=== PATIENT | male | born 1960 | race Caucasian/White ===

== ENCOUNTER 2017-11-05 12:41 | Inpatient (IN) ==
[2017-11-05] MEDS ORDERED: Lido/Epi/Tetra Gel 2 ML SYRINGE TP ONE (14:01)
[2017-11-05] MEDS ORDERED: 0.9 % Sodium Chloride 1,000 ML IVC ONE (14:09)
[2017-11-05] MEDS ORDERED: Pantoprazole 40 MG VIAL IVP ONE (14:24)
--- NOTE | 2017-11-05 14:26 | Emergency Department Note ---
Disposition Clinical Impression: Severe anemia, History of malignant neoplasm metastatic to lung, History of head and neck cancer, Confusion, Weakness GI bleed Qualifiers: GI bleed type/associated pathology: unspecified gastrointestinal hemorrhage type Qualified Code(s): K92.2 - Gastrointestinal hemorrhage, unspecified Disposition: Admitted As Inpatient Condition: Serious Time of Disposition: 22:01 Altered Mental Status HPI - General Chief Complaint: ED Altered Mental Status Stated Complaint: AMS, cancer pt-head/neck ca w/mets lungs Time Seen by Provider: 11/05/17 12:58 Source: patient Limitations: altered mental status Nursing Notes Reviewed: Yes Vital Signs Reviewed: Yes - History of Present Illness HPI Narrative: 57-year-old male complains of severe onset of confusion, hematemesis with black color expectorated, and black colored stools over the past several days. Patient's states that he was missing for 14 hours 1 day ago and had to be tracked down by the police. Once they found him patient was still confused. He had no recollection of how he ended up where he was. Patient has a history of neck and head cancer with metastasis to his lungs currently not on any chemotherapy but is on - Related Data Home Medications Medication Instructions Recorded Confirmed Omeprazole [PriLOSEC] 20 mg PO DAILY PRN 12/04/16 11/05/17 Albuterol Sulfate [Ventolin Hfa] 2 puff IH Q4-6H PRN 07/14/17 11/05/17 Budesonide/Formoterol 160/4.5 2 puff IH BIDR 07/14/17 11/05/17 [Symbicort 160/4.5] Gabapentin [Neurontin] 600 mg PO TID 11/05/17 11/05/17 Levothyroxine [Synthroid] 100 mcg PO 0630 11/05/17 11/05/17 Prochlorperazine Maleate 10 mg PO Q6H PRN 11/05/17 11/05/17 [Compazine] Previous Rx's Medication Instructions Recorded Citalopram [CeleXA] 20 mg PO DAILY #30 tablet 11/18/16 Zolpidem [Ambien] 10 mg PO HS #30 tablet 09/08/17 Oxycodone HCl [Oxaydo] 5 mg PO Q6H PRN 30 Days #120 10/13/17 tablet.orl Allergies Allergy/AdvReac Type Severity Reaction Status Date / Time No Known Allergies Allergy Verified 11/05/17 12:44 All systems ED: reviewed and negative except as stated. Review of Systems: As Per HPI Constitutional: Denies: fever Cardiovascular: Denies: chest pain Respiratory: Reports: cough Gastrointestinal: Reports: nausea, vomiting, diarrhea, hematemesis, melena Integumentary: Denies: rash Neurological: Reports: weakness, confusion Past Medical History - Past Medical History Attestation: Yes The following information was validated with the patient. Source: patient, nursing notes reviewed Medical history: Reports: cancer, thyroid disease, other Psychiatric history: Reports: depression - Social History Smoking Status: Former smoker Smokeless Tobacco Status: No Alcohol use: Reports: occasionally Drug use: Reports: none Physical Exam Vital Signs Temperature 99.1 F 11/05/17 12:44 Pulse Rate 74 11/05/17 12:44 Respiratory Rate 20 11/05/17 12:44 Blood Pressure 134/74 11/05/17 12:44 O2 Sat by Pulse Oximetry 96 11/05/17 12:44 Temperature 98.1 F 11/05/17 21:31 Pulse Rate 80 11/05/17 21:31 Respiratory Rate 17 11/05/17 21:31 Blood Pressure 120/81 11/05/17 21:31 O2 Sat by Pulse Oximetry 96 11/05/17 21:31 Oxygen Delivery Oxygen Delivery Room Air CONSTITUTIONAL: Alert and oriented X3, well-nourished, well appearing, in no apparent distress patient has some visible pallor to the skin HEAD: Normocephalic; atraumatic. EYES: PERRL, no scleral icterus. No conjunctival pallor NOSE: The nose is normal in appearance without rhinorrhea RESP: Normal chest excursion with respiration; breath sounds clear and equal bilaterally; no wheezes, rhonchi, or rales CARD: Regular rhythm, without murmurs, rub or gallop ABD: Non-distended; non-tender, soft,without rigidity, rebound or guarding GI: Fecal occult blood test positive, with melanotic stool SKIN: Normal for age and race; warm and dry; no apparent lesions NEUROLOGICAL: Patient is alert and oriented times three. Cranial nerves III- XII are intact. Sensory and motor functions are intact. Strength is 5/5 for flexion and extension in all 4 extremities. Patellar DTRS are equal and intact. Finger to nose testing is equal and normal bilaterally. No dysdiadochokinesis - General Limitations: altered mental status General appearance: alert Course - Reevaluation(s) Reevaluation #1: Hemoccult stool test positive. Patient currently doing well. Time: 14:09 Reevaluation #2: Patient continues to well and maintaining adequate vital signs. Patient's only complaint is dry mouth but is nothing by mouth. Patient is given a swab moisten his oral mucosa Time: 16:31 - Consultations Consultation #1: Dr. augustine of general surgery has been consulted. Patient will be admitted to medicine and he will see the patient in consult Time: 16:31 Consultation #2: Dr. Silva the hospitalist has except the patient for admission to telemetry bed Time: 16:31 Vital Signs Temperature 99.1 F 11/05/17 12:44 Pulse Rate 74 11/05/17 12:44 Respiratory Rate 20 11/05/17 12:44 Blood Pressure 134/74 11/05/17 12:44 O2 Sat by Pulse Oximetry 96 11/05/17 12:44 Temperature 98.4 F 11/06/17 10:39 Pulse Rate 58 11/06/17 10:39 Respiratory Rate 16 11/06/17 10:39 Blood Pressure 134/77 11/06/17 10:39 O2 Sat by Pulse Oximetry 93 11/06/17 10:39 Oxygen Delivery Oxygen Delivery Room Air Altered Mental Status - [facility] Narrative Medical decision making narrative: Patient presents with confusion, and active upper GI bleed symptoms with black hematemesis and melanotic stools. Patient has a history of cancer with metastasis to his lungs that is also concerning for possible metastasis to brain and abdomen. CT head ordered as well as labs and chest imaging along with CT abdomen and pelvis. Results show that patient is anemic at 7.7 with positive active GI bleeding for which Dr. augustine of general surgery was consult for endoscopy and patient has been updated on his condition and results of lab workup and imaging and understands the decision for admission. Patient has been accepted for admission for transfusion which has been ordered by hospitalist Dr. Silva Patient's anemia may be contributing have lead to patient's confusion. Patient's currently doing well and is maintaining normal blood pressures and vital signs while patient is lying down. Of note patient is nothing by mouth and is receiving IV rehydration 2 L. He has been started on weight milligrams of protonic's bolus and Protonix drip at 8 mg per hour. - Lab Data Lab results reviewed: Yes I reviewed the patient's lab results. Lab results narrative: Short CBC 11/05/17 Range/Units 14:34 WBC 6.6 (4.3-11.1) K/mcL Hgb 7.7 L (12.9-16.9) g/dL Hct 23.9 L (37.5-50.1) % Plt Count 264 (140-400) K/mcL Neutrophils # 5.7 (1.6-8.9) K/mcL BMP 11/05/17 Range/Units 14:34 Sodium 137 (136-145) mEq/L Potassium 3.6 (3.5-5.1) mEq/L Chloride 103 (98-107) mEq/L Carbon Dioxide 27 (23-29) mEq/L BUN 7 (6-20) mg/dL Creatinine 0.86 (0.70-1.30) mg/dL Glucose 95 (70-105) mg/dL Calcium 8.8 (8.6-10.3) mg/dL Liver Function 11/05/17 Range/Units 14:34 Total Bilirubin 0.4 (0.3-1.0) mg/dL Direct Bilirubin 0.1 (0.0-0.2) mg/dL AST 25 (13-39) Units/L ALT 14 (7-52) Units/L Alkaline Phosphatase 45 (34-104) Units/L Albumin 3.5 (3.5-5.7) g/dL Urine 11/05/17 Range/Units 16:21 Urine Color Yellow (Yellow) Urine Clarity Clear (Clear) Urine pH 7.5 (5.0-8.0) pH Units Ur Specific [place] 1.026 H (1.010-1.025) Urine Protein Negative (Neg-Trace) mg/dL Urine Glucose (UA) Normal (Normal) mg/dL Result diagrams: 11/06/17 03:29 11/06/17 03:29 Lab Results 11/05/17 11/05/17 11/05/17 Range/Units 14:34 14:34 14:34 WBC 6.6 (4.3-11.1) K/mcL RBC 2.64 L (4.19-5.50) M/mcL Hgb 7.7 L (12.9-16.9) g/dL Hct 23.9 L (37.5-50.1) % MCV 90.5 (83.0-100.0) fL MCH 29.2 (28.0-33.3) pg MCHC 32.2 (31.6-35.5) g/dL RDW 13.6 (11.5-14.5) % Plt Count 264 (140-400) K/mcL MPV 8.5 L (9.4-12.4) fL Immature Gran % 0.5 (0-4) % Seg Neutrophils % 85.3 % Lymphocytes % 5.0 % Monocytes % 6.4 % Eosinophils % 2.3 % Basophils % 0.5 % Neutrophils # 5.7 (1.6-8.9) K/mcL Lymphocytes # 0.3 L (0.6-4.6) K/mcL Monocytes # 0.4 (0.0-1.3) K/mcL Eosinophils # 0.2 (0.0-0.6) K/mcL Basophils # 0.0 (0.0-0.2) K/mcL PT 13.2 H (9.4-12.1) Seconds INR 1.2 APTT 78.0 H (26.0-36.0) Seconds Sodium 137 (136-145) mEq/L Potassium 3.6 (3.5-5.1) mEq/L Chloride 103 (98-107) mEq/L Carbon Dioxide 27 (23-29) mEq/L BUN 7 (6-20) mg/dL Creatinine 0.86 (0.70-1.30) mg/dL Est GFR ( Amer) > 60 (> 60) Est GFR (Non-Af Amer) > 60 (> 60) BUN/Creatinine Ratio 8 (6-26) Glucose 95 (70-105) mg/dL Calculated Osmolality 282 (280-300) Calcium 8.8 (8.6-10.3) mg/dL Total Bilirubin 0.4 (0.3-1.0) mg/dL Direct Bilirubin 0.1 (0.0-0.2) mg/dL Indirect Bilirubin 0.3 (0.0-1.2) mg/dL AST 25 (13-39) Units/L ALT 14 (7-52) Units/L Alkaline Phosphatase 45 (34-104) Units/L Serum Total Protein 6.1 L (6.4-8.9) g/dL Albumin 3.5 (3.5-5.7) g/dL Globulin 2.6 (2.4-3.5) g/dL Albumin/Globulin Ratio 1.3 (1.1-2.2) Urine Color (Yellow) Urine Clarity (Clear) Urine pH (5.0-8.0) pH Units Ur Specific [place] (1.010-1.025) Urine Protein (Neg-Trace) mg/dL Urine Glucose (UA) (Normal) mg/dL Urine Ketones (Negative) mg/dL Urine Blood (Negative) Urine Nitrite (Negative) Urine Bilirubin (Negative) Urine Urobilinogen (Normal) mg/dL Ur Leukocyte Esterase (Negative) Ur Culture Indicated? (NO) Blood Type Antibody Screen Crossmatch 11/05/17 11/05/17 Range/Units 14:34 16:21 WBC (4.3-11.1) K/mcL RBC (4.19-5.50) M/mcL Hgb (12.9-16.9) g/dL Hct (37.5-50.1) % MCV (83.0-100.0) fL MCH (28.0-33.3) pg MCHC (31.6-35.5) g/dL RDW (11.5-14.5) % Plt Count (140-400) K/mcL MPV (9.4-12.4) fL Immature Gran % (0-4) % Seg Neutrophils % % Lymphocytes % % Monocytes % % Eosinophils % % Basophils % % Neutrophils # (1.6-8.9) K/mcL Lymphocytes # (0.6-4.6) K/mcL Monocytes # (0.0-1.3) K/mcL Eosinophils # (0.0-0.6) K/mcL Basophils # (0.0-0.2) K/mcL PT (9.4-12.1) Seconds INR APTT (26.0-36.0) Seconds Sodium (136-145) mEq/L Potassium (3.5-5.1) mEq/L Chloride (98-107) mEq/L Carbon Dioxide (23-29) mEq/L BUN (6-20) mg/dL Creatinine (0.70-1.30) mg/dL Est GFR ( Amer) (> 60) Est GFR (Non-Af Amer) (> 60) BUN/Creatinine Ratio (6-26) Glucose (70-105) mg/dL Calculated Osmolality (280-300) Calcium (8.6-10.3) mg/dL Total Bilirubin (0.3-1.0) mg/dL Direct Bilirubin (0.0-0.2) mg/dL Indirect Bilirubin (0.0-1.2) mg/dL AST (13-39) Units/L ALT (7-52) Units/L Alkaline Phosphatase (34-104) Units/L Serum Total Protein (6.4-8.9) g/dL Albumin (3.5-5.7) g/dL Globulin (2.4-3.5) g/dL Albumin/Globulin Ratio (1.1-2.2) Urine Color Yellow (Yellow) Urine Clarity Clear (Clear) Urine pH 7.5 (5.0-8.0) pH Units Ur Specific [place] 1.026 H (1.010-1.025) Urine Protein Negative (Neg-Trace) mg/dL Urine Glucose (UA) Normal (Normal) mg/dL Urine Ketones Trace H (Negative) mg/dL Urine Blood Negative (Negative) Urine Nitrite Negative (Negative) Urine Bilirubin Negative (Negative) Urine Urobilinogen Normal (Normal) mg/dL Ur Leukocyte Esterase Negative (Negative) Ur Culture Indicated? NO (NO) Blood Type A NEGATIVE Antibody Screen NEGATIVE Crossmatch See Detail - Radiology Data Radiology results reviewed: Yes I reviewed the patient's radiology results. Head CT 11/05/17 13:59 IMPRESSION: No acute intracranial abnormality. D/ / Hoang Rosa / Hoang Rosa Interpreting Provider: Hoang Rosa Chest X-Ray 11/05/17 14:02 IMPRESSION: Small right pleural effusion with adjacent atelectasis. COPD. D/ / 11/05/2017 15:54:48 Татьяна Guerra MD / [facility] Interpreting Provider: Татьяна Guerra MD Abdomen/Pelvis CT 11/05/17 14:26 IMPRESSION: No acute findings within the abdomen or pelvis. New unilateral right pleural effusion with patchy airspace opacity right lower lobe. Differential diagnosis includes metastatic involvement of the right pleural space with compressive atelectasis right lower lobe ; possible right lower lobe pneumonia. Few noncalcified pulmonary nodules noted in both lung bases which have demonstrated interval increased size since July 2016 compatible with some progression of metastatic disease to the lungs. RECOMMENDATIONS: Consider follow-up CT scan of the chest D/ / Wilmar Hood MD / Wilmar Hood MD Interpreting Provider: Wilmar Hood MD - EKG Data EKG attestation: Yes I reviewed and interpreted this EKG. EKG results narrative: EKG taken 11/05/2017 at 1333 hrs. shows a sinus rhythm at a rate of 68 beats and no acute ST elevations or depressions and 80s, wrist widening or QT prolongation. No change morphology when compared to previous EKG taken 2014. Attestation Statement - Attestation Attestation: I examined this patient and my medical decision-making was reviewed with the Resident Physician. I agree with the documented findings, disposition and treatment plan as described except to the extent set forth below. Spoke with family, evaluated pt. Hemodynamically stable with melena, hgb 7-8, AMS.
[2017-11-05 14:54] LABS: Basophils % 0.5 %; Eosinophils # 0.2 K/mcL (0.0-0.6); Eosinophils % 2.3 %; Hematocrit 23.9 % (37.5-50.1); Hemoglobin 7.7 g/dL (12.9-16.9); Immature Granulocytes % 0.5 % (0-4); Lymphocytes # 0.3 K/mcL (0.6-4.6); Mean Corpuscular HGB Conc 32.2 g/dL (31.6-35.5); Mean Corpuscular Hemoglobin 29.2 pg (28.0-33.3); Mean Corpuscular Volume 90.5 fL (83.0-100.0); Mean Platelet Volume 8.5 fL (9.4-12.4); Monocytes # 0.4 K/mcL (0.0-1.3); Monocytes % 6.4 %; Neutrophils # 5.7 K/mcL (1.6-8.9); Platelet Count 264 K/mcL (140-400); Red Blood Count 2.64 M/mcL (4.19-5.50); Red Cell Distribution Width 13.6 % (11.5-14.5); Segmented Neutrophils % 85.3 %
[2017-11-05 14:59] LABS: INR 1.2; Prothrombin Time 13.2 Seconds (9.4-12.1)
[2017-11-05 15:06] LABS: Alanine Aminotransferase 14 Units/L (7-52); Albumin 3.5 g/dL (3.5-5.7); Albumin/Globulin Ratio 1.3 (1.1-2.2); Alkaline Phosphatase 45 Units/L (34-104); Aspartate Amino Transferase 25 Units/L (13-39); BUN/Creatinine Ratio 8 (6-26); Bilirubin,Direct 0.1 mg/dL (0.0-0.2); Bilirubin,Indirect 0.3 mg/dL (0.0-1.2); Bilirubin,Total 0.4 mg/dL (0.3-1.0); Blood Urea Nitrogen 7 mg/dL (6-20); Calcium 8.8 mg/dL (8.6-10.3); Carbon Dioxide 27 mEq/L (23-29); Chloride 103 mEq/L (98-107); Globulin 2.6 g/dL (2.4-3.5); Glucose 95 mg/dL (70-105); Osmolality,Calculated 282 (280-300); Potassium 3.6 mEq/L (3.5-5.1); Sodium 137 mEq/L (136-145); Total Protein 6.1 g/dL (6.4-8.9); eGFR For African Americans > 60 (> 60); eGFR For Non-African Americans > 60 (> 60)
[2017-11-05] MEDS: Pantoprazole 40 MG in 0.9 % Sodium Chloride Mini Bag 100 ML IVC SCH ×2 (16:39→21:43)
[2017-11-05 16:44] LABS: Bilirubin,Urine Negative (Negative); Blood,Urine Negative (Negative); Clarity,Urine Clear (Clear); Color,Urine Yellow (Yellow); Glucose,Urine (UA) Normal (Normal); Ketones,Urine Trace mg/dL (Negative); Leukocyte Esterase,Urine Negative (Negative); Nitrite,Urine Negative (Negative); PH,Urine 7.5 pH Units (5.0-8.0); Protein,Urine Negative (Neg-Trace); Specific Gravity,Urine 1.026 (1.010-1.025); Urobilinogen,Urine Normal (Normal)
[2017-11-05] MEDS ORDERED: 0.9 % Sodium Chloride 250 ML ONE ×2 (18:47→23:46)
--- NOTE | 2017-11-05 20:09 | Internal Med History&Physical ---
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 will be consulted for brain metastases will obtain MRI of the head and consult oncology for follow-up Qualifiers: Altered mental status type: delirium Qualified Code(s): R41.0 - Disorientation, unspecified (2) GI bleed Current visit: Yes Status: Acute Likely upper GI bleed patient vomited blood and also has some black stool Dr Bowens has seen patient in consultation Qualifiers: GI bleed type/associated pathology: unspecified gastrointestinal hemorrhage type Qualified Code(s): K92.2 - Gastrointestinal hemorrhage, unspecified (3) Severe anemia Current visit: Yes Status: Acute Severe anemia due to GI bleed with normal MCV to give 2 units of blood transfusion (4) Hypothyroidism Current visit: Yes Status: Chronic Chronic resume home medication Qualifiers: Hypothyroidism type: unspecified Qualified Code(s): E03.9 - Hypothyroidism , unspecified (5) Primary squamous cell carcinoma of oropharynx Current visit: No Status: Acute Stage IV cancer on chemotherapy Internal Medicine - H&P: HPI Chief complaint: confusion and black stool and vomitting blood Plans for Post Hospital Care: Home History of present illness: Mr. 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 Hemoglobin emergency room was [address] Bowens has been consult and for endoscopy tomorrow patient is able to answer question but has difficulty processing and recalling information . he is awake and alert . Given history of stage IV cancer need to rule out brain metastases as well. Past Med Surg Social Fam HX - Past Medical History Medical history: asthma, cancer, COPD, thyroid disease, other Psychiatric history: depression - Social History Smoking Status: Former smoker Smokeless Tobacco Status: No Alcohol use: occasionally, recent Drug use: none Internal Medicine - H&P: Meds Citalopram [CeleXA] 20 mg PO DAILY #30 tablet 03/27/17 [Rx] Omeprazole [PriLOSEC] 20 mg PO DAILY PRN 12/04/16 [History] Albuterol Sulfate [Ventolin Hfa] 2 puff IH Q4-6H PRN 07/14/17 [History] Budesonide/Formoterol 160/4.5 [Symbicort 160/4.5] 2 puff IH BIDR 07/14/17 [ History] Zolpidem [Ambien] 10 mg PO HS #30 tablet 09/08/17 [Rx] Oxycodone HCl [Oxaydo] 5 mg PO Q6H PRN 30 Days #120 tablet.orl 10/13/17 [Rx] Gabapentin [Neurontin] 600 mg PO TID 11/05/17 [History] Levothyroxine [Synthroid] 100 mcg PO 0630 11/05/17 [History] Prochlorperazine Maleate [Compazine] 10 mg PO Q6H PRN 11/05/17 [History] 3 Allergy/AdvReac Type Severity Reaction Status Date / Time No Known Allergies Allergy Verified 11/05/17 12:44 All Systems PM: A 10-system review of systems was performed and is negative for pertinent findings except as documented above in the HPI. - Constitutional Vitals: Temp Pulse Resp BP Pulse Ox 99.1 F 69 18 115/69 96 11/05/17 12:44 11/05/17 15:30 11/05/17 15:30 11/05/17 15:30 11/05/17 15:30 General appearance: Present: A&O X 2 - Head Head exam: Present: atraumatic, normocephalic - Eye Eye exam: Present: PERRL, conjuntiva pink, sclera anicteric Pupils: Present: PERRL - Respiratory Respiratory exam: Present: rhonchi - Cardiovascular Cardiovascular exam: Present: RRR, +S1, +S2. Absent: diastolic murmur, gallop, rubs, systolic murmur - GI/Abdominal GI/Abdominal exam: Present: normal bowel sounds, soft, no peritoneal signs. Absent: distended, tenderness - Extremities Exam Extremities exam: Present: warm, radial pulses palpable and symmetrical. Absent : calf tenderness, cyanotic, pedal edema Internal Med - H&P Results - Labs CBC & Chem 7: 11/05/17 14:34 11/05/17 14:34
[2017-11-05] MEDS ORDERED: Naloxone 0.4 MG/ML INJ IVP PRN (20:14)
[2017-11-05] MEDS ORDERED: Acetaminophen 325 MG TABLET PO PRN (20:14)
[2017-11-05] MEDS ORDERED: *HR* OxyCODONE Immed Rel 5 MG TABLET PO PRN (20:17)
[2017-11-05] MEDS: Gabapentin 300 MG CAPSULE PO SCH (21:42)
[2017-11-05] MEDS: 0.9 % Sodium Chloride 1,000 ML IVC SCH (21:43)
[2017-11-05] MEDS: Budesonide/Formoterol 160/4.5 MDI IH SCH (22:16)
[2017-11-06] MEDS: Pantoprazole 40 MG in 0.9 % Sodium Chloride Mini Bag 100 ML IVC SCH ×3 (02:35→15:44)
[2017-11-06 04:23] LABS: Basophils % 0.7 %; Eosinophils # 0.2 K/mcL (0.0-0.6); Hematocrit 29.1 % (37.5-50.1); Immature Granulocytes % 0.4 % (0-4); Lymphocytes # 0.4 K/mcL (0.6-4.6); Lymphocytes % 7.2 %; Mean Corpuscular HGB Conc 32.6 g/dL (31.6-35.5); Mean Corpuscular Hemoglobin 29.2 pg (28.0-33.3); Mean Corpuscular Volume 89.5 fL (83.0-100.0); Mean Platelet Volume 8.5 fL (9.4-12.4); Monocytes # 0.4 K/mcL (0.0-1.3); Monocytes % 7.2 %; Neutrophils # 4.6 K/mcL (1.6-8.9); Platelet Count 250 K/mcL (140-400); Red Blood Count 3.25 M/mcL (4.19-5.50); Red Cell Distribution Width 13.3 % (11.5-14.5); Segmented Neutrophils % 81.5 %
[2017-11-06 04:25] LABS: Hemoglobin 9.5 g/dL (12.9-16.9)
[2017-11-06 04:35] LABS: Alanine Aminotransferase 12 Units/L (7-52); Albumin 3.4 g/dL (3.5-5.7); Albumin/Globulin Ratio 1.4 (1.1-2.2); Alkaline Phosphatase 45 Units/L (34-104); Aspartate Amino Transferase 19 Units/L (13-39); BUN/Creatinine Ratio 8 (6-26); Blood Urea Nitrogen 7 mg/dL (6-20); Calcium 8.3 mg/dL (8.6-10.3); Carbon Dioxide 21 mEq/L (23-29); Chloride 108 mEq/L (98-107); Globulin 2.4 g/dL (2.4-3.5); Glucose 88 mg/dL (70-105); Magnesium 2.2 mg/dL (1.6-2.6); Osmolality,Calculated 285 (280-300); Potassium 3.7 mEq/L (3.5-5.1); Sodium 139 mEq/L (136-145); Total Protein 5.8 g/dL (6.4-8.9); eGFR For African Americans > 60 (> 60); eGFR For Non-African Americans > 60 (> 60)
[2017-11-06] MEDS: Budesonide/Formoterol 160/4.5 MDI IH SCH ×2 (08:22→22:18)
[2017-11-06] MEDS ORDERED: Pantoprazole 40 MG VIAL IVP SCH (09:00)
[2017-11-06] MEDS ORDERED: *HR* FentaNYL (PF) 100 MCG/2 ML VIAL ONE (09:46)
[2017-11-06] MEDS ORDERED: *HR* Midazolam HCl 5 MG/5 ML VIAL IVP ONE ×2 (09:46→10:30)
--- NOTE | 2017-11-06 09:55 | General Surgery Consult Note ---
Date of Encounter: 11/06/17 Time of Encounter: 09:54 History of Present Illness Consult date: 11/05/17 Reason for consult: other (Anemia, melena, hematemesis) Requesting physician: Damien Jacob History of present illness: General Surgery / Gastroenterology This is a redictated consultation 57-year-old male referred for further evaluation acute blood loss anemia, melena , and hematemesis. The patient apparently presented to the emergency department after an episode of acute mental status changes. He was found to be anemic and was complaining of melena and hematemesis. Referral for potential upper endoscopy was placed. Past medical history is notable for squamous cell carcinoma of the oropharynx. This was diagnosed in 2014. He was deemed inoperable as it was "wrapped around the carotid". The patient had been treated with radiation and is now undergoing chemotherapy. This squamous cell carcinoma of the oropharynx has metastasized to the lungs with radiologic evidence of progressive disease. The patient describes epigastric burning pain/pyrosis for which omeprazole was prescribed, however, the patient was not taking this medication as it was not covered by his prescription plan. Other significant medical history: COPD, depression, asthma, and thyroid disease Surgical history: Bilateral myringotomies as a child; tonsillectomy in the remote past; ORIF right shoulder and right wrist Allergies: No known drug allergies Social history: Patient is , lives with his spouse; he is a former smoker ; he quit smoking in 2014 when his oral pharyngeal cancer was diagnosed. He does admit to alcohol - daily "if he can get it" he denies any illicit drug use. On physical examination: Age-appropriate male resting comfortably in his hospital bed. The patient has been afebrile, hemodynamically stable - pulse 65, respirations 18, blood pressure 154/79; SPO2 on room air 95-97% Skin: Warm without obvious jaundice Lungs: Basilar rales notable on the left; right clear Cardiac: Regular rate, no obvious murmurs Abdomen: Soft, nontender; no obvious intra-abdominal masses. No rebound. Normal active bowel sounds. Extremities: No obvious clubbing, cyanosis or edema. Labs: White count 6.6, hemoglobin 7.7 with hematocrit 23.9. The patient received 2 units of packed red blood cells overnight with a hemoglobin improving to 9.5, hematocrit 29.1. Platelet count 264,000. PT 13.2 INR 1.2. Electrolytes, BUN, creatinine, LFTs, within normal limits Impression: 57-year-old male admitted after presenting to [facility] emergency department with acute mental status changes and new anemia. This appears to be acute blood loss anemia related to melena and hematemesis. The patient is complaining of epigastric abdominal pain/pyrosis. The likely source of this patient's new anemia is the upper GI. An EGD has been discussed. And arranged for 11/06/16. The procedure was discussed in detail. Risks include aspiration, cramping abdominal pain, bloating, hemorrhage , and perforation. Both the patient and his expressed understanding and were willing to proceed. Consent has been obtained. Past Med Surg Social Fam HX - Past Medical History Medical history: cancer, thyroid disease, other Psychiatric history: depression - Social History Smoking Status: Former smoker Smokeless Tobacco Status: No Alcohol use: occasionally Drug use: none Medications and Allergies Citalopram [CeleXA] 20 mg PO DAILY #30 tablet 11/18/16 [Rx] Omeprazole [PriLOSEC] 20 mg PO DAILY PRN 12/04/16 [History] Albuterol Sulfate [Ventolin Hfa] 2 puff IH Q4-6H PRN 07/14/17 [History] Budesonide/Formoterol 160/4.5 [Symbicort 160/4.5] 2 puff IH BIDR 07/14/17 [ History] Zolpidem [Ambien] 10 mg PO HS #30 tablet 09/08/17 [Rx] Oxycodone HCl [Oxaydo] 5 mg PO Q6H PRN 30 Days #120 tablet.orl 10/13/17 [Rx] Gabapentin [Neurontin] 600 mg PO TID 11/05/17 [History] Levothyroxine [Synthroid] 100 mcg PO 0630 11/05/17 [History] Prochlorperazine Maleate [Compazine] 10 mg PO Q6H PRN 11/05/17 [History] 3 Allergy/AdvReac Type Severity Reaction Status Date / Time No Known Allergies Allergy Verified 11/05/17 12:44 Review of Systems All systems PM: The remainder of the systems were reviewed and are negative General Surgery Exam Initial Vital Signs Temp Pulse Resp BP Pulse Ox 99.1 F 74 20 134/74 96 03/14/18 12:44 11/05/17 12:44 11/05/17 12:44 11/05/17 12:44 11/05/17 12:44 Exam Initial Vital Signs Temp Pulse Resp BP Pulse Ox 99.1 F 74 20 134/74 96 11/05/17 12:44 11/05/17 12:44 11/05/17 12:44 11/05/17 12:44 11/05/17 12:44 Results - Labs 11/06/17 03:29 11/06/17 03:29 Abnormal lab results RBC 3.25 M/mcL (4.19-5.50) L 11/06/17 03:29 Hgb 9.5 g/dL (12.9-16.9) L D 11/06/17 03:29 Hct 29.1 % (37.5-50.1) L 11/06/17 03:29 MPV 8.5 fL (9.4-12.4) L 11/06/17 03:29 Lymphocytes # 0.4 K/mcL (0.6-4.6) L 11/06/17 03:29 PT 13.2 Seconds (9.4-12.1) H 11/05/17 14:34 APTT 78.0 Seconds (26.0-36.0) H 11/05/17 14:34 Chloride 108 mEq/L (98-107) H 11/06/17 03:29 Carbon Dioxide 21 mEq/L (23-29) L 11/06/17 03:29 Calcium 8.3 mg/dL (8.6-10.3) L 11/06/17 03:29 Serum Total Protein 5.8 g/dL (6.4-8.9) L 11/06/17 03:29 Albumin 3.4 g/dL (3.5-5.7) L 11/06/17 03:29 Ur Specific [place] 1.026 (1.010-1.025) H 11/05/17 16:21 Urine Ketones Trace mg/dL (Negative) H 11/05/17 16:21 Diabetes panel 11/06/17 Range/Units 03:29 Sodium 139 (136-145) mEq/L Potassium 3.7 (3.5-5.1) mEq/L Chloride 108 H (98-107) mEq/L Carbon Dioxide 21 L (23-29) mEq/L BUN 7 (6-20) mg/dL Creatinine 0.84 (0.70-1.30) mg/dL Glucose 88 (70-105) mg/dL Calcium 8.3 L (8.6-10.3) mg/dL AST 19 (13-39) Units/L ALT 12 (7-52) Units/L Alkaline Phosphatase 45 (34-104) Units/L Albumin 3.4 L (3.5-5.7) g/dL Calcium panel 11/06/17 Range/Units 03:29 Calcium 8.3 L (8.6-10.3) mg/dL Albumin 3.4 L (3.5-5.7) g/dL Pituitary panel 11/06/17 Range/Units 03:29 Sodium 139 (136-145) mEq/L Potassium 3.7 (3.5-5.1) mEq/L Chloride 108 H (98-107) mEq/L Carbon Dioxide 21 L (23-29) mEq/L BUN 7 (6-20) mg/dL Creatinine 0.84 (0.70-1.30) mg/dL Glucose 88 (70-105) mg/dL Calcium 8.3 L (8.6-10.3) mg/dL Adrenal panel 11/06/17 Range/Units 03:29 Sodium 139 (136-145) mEq/L Potassium 3.7 (3.5-5.1) mEq/L Chloride 108 H (98-107) mEq/L Carbon Dioxide 21 L (23-29) mEq/L BUN 7 (6-20) mg/dL Creatinine 0.84 (0.70-1.30) mg/dL Glucose 88 (70-105) mg/dL Calcium 8.3 L (8.6-10.3) mg/dL Total Bilirubin 1.0 (0.3-1.0) mg/dL AST 19 (13-39) Units/L ALT 12 (7-52) Units/L Alkaline Phosphatase 45 (34-104) Units/L Albumin 3.4 L (3.5-5.7) g/dL All other labs normal. Consult Discharge Plan - Plan Referrals: Jose Alejandro West MD [Primary Care Provider] -
[2017-11-06] MEDS ORDERED: Tetracaine/Benzocaine/Butamben 200MG/SPRAY (100SPY/BOT) MM ONE (10:06)
[2017-11-06] MEDS ORDERED: *HR* Midazolam HCl 2 MG/2 ML VIAL IVP ONE (10:06)
[2017-11-06] MEDS ORDERED: Simethicone 40 MG/0.6 ML MLS IR ONE (10:06)
--- NOTE | 2017-11-06 10:07 | Pre-Sedation Evaluation ---
Pre-sedation evaluation - Pre-sedation checklist Date of procedure: 11/06/17 Procedure: EGD Recent Vitals: Last Vital Signs Temp 98.4 F 11/06/17 06:45 Pulse 65 11/06/17 09:59 Resp 18 11/06/17 09:59 BP 152/86 11/06/17 09:59 Pulse Ox 95 11/06/17 09:59 H&P (including ROS) documented in medical record: Yes Dietary Status: NPO 6 hours prior to procedure Airway Assessment: Patient can open mouth completely, TMJ function normal, Micrognathia (under-bite, receding chin) absent, Neck with adequate range of motion Dentition: No loose teeth or bridges Possible difficult airway: No ASA Classification *see protocol: CLASS III-Severe systemic disease Plan of Care: Pt appropriate candidate for procedure/moderate/conscious sedation , Risks/benefits of procedure/sedation discussed w/ patient/family, If not NPO; Risk of intake outweiged by necessity to perform procedure
[2017-11-06] MEDS: *HR* FentaNYL (PF) 100 MCG/2 ML VIAL IVP ONE ×2 (10:10→10:14)
[2017-11-06] MEDS: Gabapentin 300 MG CAPSULE PO SCH ×3 (10:50→20:26)
--- NOTE | 2017-11-06 14:08 | Discharge Summary ---
Orders not resulted at time of discharge: Pending orders 11/05/17 14:34 Red Blood Cells [BBK] Stat 11/06/17 10:21 Surgical Pathology [PTH] Routine 11/06/17 10:22 H. pylori Urease Culture [RM] Routine Date of Encounter: 11/06/17 Time of Encounter: 14:06 - Discharge Diagnosis (1) Mental status change Priority: Primary Status: Acute Qualifiers: Altered mental status type: delirium Qualified Code(s): R41.0 - Disorientation, unspecified (2) Severe anemia Priority: Primary Status: Acute (3) GI bleed Priority: Primary Status: Acute Qualifiers: GI bleed type/associated pathology: unspecified gastrointestinal hemorrhage type Qualified Code(s): K92.2 - Gastrointestinal hemorrhage, unspecified (4) Primary squamous cell carcinoma of oropharynx Priority: Secondary Status: Acute (5) History of malignant neoplasm metastatic to lung Priority: Secondary Status: Acute (6) Hypothyroidism Priority: Secondary Status: Chronic Qualifiers: Hypothyroidism type: unspecified Qualified Code(s): E03.9 - Hypothyroidism , unspecified Hospital course: Mr. 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 As per patient was missing and found by police while still confused and brought back and then presented emergency room patient apparently has had intermittent black stool and also vomited blood. Hemoglobin emergency room was 7.7 . Pt was admtted in the hospital and given 2 U PRBC his Hb improved to 9.5 today. Pt was evaluated by surgery Dr. Bowens who did EGD today, which showed Gastritis and Esophagitis. His CT of head did not show any acute changes, however his MRI showed enhancing mass lesion in the left later occipital region concerning for meningioma, also there is a small amount of irregularity along his inner margin a dural with possible metastasis. At this point patient family would like to transfer him to [facility] for further higher level of care, of the note patient gets his regular immunotherapy from [facility]. So I did contact [facility] transfer center and patient was accepted for further higher level of care. Also I did talk to patients him oncologist office at [phone] and informed about patient's current care here. - Time Spent with Patient Total time spent providing and/or coordinating discharge services: - Discharge Medications Home Medications: Citalopram [CeleXA] 20 mg PO DAILY #30 tablet 11/18/16 [Rx] Omeprazole [PriLOSEC] 20 mg PO DAILY PRN 12/04/16 [History] Albuterol Sulfate [Ventolin Hfa] 2 puff IH Q4-6H PRN 07/14/17 [History] Budesonide/Formoterol 160/4.5 [Symbicort 160/4.5] 2 puff IH BIDR 07/14/17 [ History] Zolpidem [Ambien] 10 mg PO HS #30 tablet 09/08/17 [Rx] Oxycodone HCl [Oxaydo] 5 mg PO Q6H PRN 30 Days #120 tablet.orl 10/13/17 [Rx] Gabapentin [Neurontin] 600 mg PO TID 11/05/17 [History] Levothyroxine [Synthroid] 100 mcg PO 0630 11/05/17 [History] Prochlorperazine Maleate [Compazine] 10 mg PO Q6H PRN 11/05/17 [History] Allergies/Adverse Reactions: 3 Allergy/AdvReac Type Severity Reaction Status Date / Time No Known Allergies Allergy Verified 11/05/17 12:44 Date of admission: 11/05/17 17:07 Primary care physician: Jose Alejandro West MD Consults: 11/05/17 20:16 Consult to Physician [CONS] Routine Consulting Provider: Lamont Bowens Reason for Consult: gi bleed Time Notified: 20:17 Call Completed: No - Constitutional Vitals: Temp Pulse Resp BP Pulse Ox 98.4 F 58 16 134/77 93 11/06/17 10:39 11/06/17 10:39 11/06/17 10:39 11/06/17 10:39 11/06/17 10:39 General appearance: Present: A&O X 3, no acute distress, answers questions appropriately - Head Head exam: Present: atraumatic, normal inspection - Neck Neck exam general surgery: Present: supple - Respiratory Respiratory exam: Present: decreased breath sounds. Absent: rales, respiratory distress, rhonchi, wheezes - Cardiovascular Cardiovascular exam: Present: +S1, +S2. Absent: tachycardia - GI/Abdominal GI/Abdominal exam: Present: normal bowel sounds, soft. Absent: rebound, rigid, tenderness - Extremities Exam Extremities exam: Absent: calf tenderness, pedal edema, tenderness - Back Exam Back exam: Absent: CVA tenderness (L), CVA tenderness (R) - Neurological Exam Neurological exam: Present: alert, oriented X3 - Psychiatric Psychiatric exam: Present: normal affect, normal mood - Skin Skin exam: Absent: rash - Patient Status Disposition: Transfer Other Condition: Serious Overall status at discharge: patient is back to baseline - Discharge Instructions Follow Up With: Jose Alejandro West MD [Primary Care Provider] - (web request sent on 11/06/17 ) - Diet and Activity Activity: increase activity as tolerated Diet: low salt diet
[2017-11-06] MEDS: 0.9 % Sodium Chloride 1,000 ML IVC SCH (14:27)
[2017-11-06] MEDS ORDERED: Prochlorperazine 10 MG/2 ML VIAL IVP STA (14:40)
[2017-11-06 18:41] VITALS: BP 129/77
--- NOTE | 2017-11-09 09:55 | Electrocardiograph Report ---
[place] [id number] Test Date: 2017-11-05 Pat Name: Lester Null Department: 102 Room: 2A Gender: M Shank Breaker: Angie : 1960 Requested By: Damien Jacob Order Number: [id number] Reading MD: Sreekanth Mckenzie DO Measurements Intervals [place] Rate: 68 P: -7 KS: 145 QRS: -14 QRSD: 98 T: 51 QT: 410 QTc: 427 Interpretive Statements SINUS RHYTHM Electronically Signed On 11-09-2017 9:54:16 EDT by Sreekanth Mckenzie DO
== END 2017-11-06 21:46 | disposition other institution (70) | DRG 378 ==
LOC: EMEROO 12:41 → 2ANU 17:07
PROVIDERS: ADMIT Internal Medicine Cardiovascular Disease; ATTEND Family Medicine
PROC: ENDOEBX (2017-11-06 15:00)

== ENCOUNTER 2018-01-20 02:52 | Observation (INO) ==
[2018-01-20] MEDS ORDERED: 0.9 % Sodium Chloride 1,000 ML IVC ONE (03:35)
[2018-01-20] MEDS ORDERED: Ondansetron 4 MG/2 ML VIAL IVP ONE (03:37)
--- NOTE | 2018-01-20 03:42 | Emergency Department Note ---
Disposition Clinical Impression: Hypokalemia, History of malignant neoplasm metastatic to lung, Elevated TSH Intractable nausea and vomiting Qualifiers: Vomiting type: unspecified Qualified Code(s): R11.2 - Nausea with vomiting, unspecified Disposition: Admitted As Inpatient Condition: Good Referrals: Jose Alejandro West MD [Primary Care Provider] - Forms: ED Satisfaction Letter General Adult HPI - General Chief complaint: ED Shortness of Breath/Dyspnea Stated complaint: EVANGELINA, Nausea, CA pt Time Seen by Provider: 01/20/18 03:01 Source: patient Limitations: no limitations - History of Present Illness HPI Narrative: 57-year-old male with a past medical history of stage IV squamous cell cancer originally from the head and neck with metastasis to the lungs. He reports that over the last 3 days he has had intermittent nausea and vomiting with epigastric discomfort and shaking chills. He is currently receiving chemotherapy most recent treatment was couple of weeks ago. He receives his cancer care at the [facility]. He was admitted about 2 months ago due to a GI bleed. He took his Zofran at home without relief. He has had difficulty with oral intake due to the nausea. He does not currently have epigastric pain. Pain Scale: 0 Improves with: nothing Worsens with: nothing Associated symptoms: Reports: denies other symptoms Treatments Prior to Arrival: none - Related Data Home Medications Medication Instructions Recorded Confirmed Omeprazole [PriLOSEC] 20 mg PO DAILY PRN 12/04/16 11/05/17 Albuterol Sulfate [Ventolin Hfa] 2 puff IH Q4-6H PRN 07/14/17 11/05/17 Budesonide/Formoterol 160/4.5 2 puff IH BIDR 07/14/17 11/05/17 [Symbicort 160/4.5] Gabapentin [Neurontin] 600 mg PO TID 11/05/17 11/05/17 Levothyroxine [Synthroid] 100 mcg PO 0630 11/05/17 11/05/17 Prochlorperazine Maleate 10 mg PO Q6H PRN 11/05/17 11/05/17 [Compazine] Previous Rx's Medication Instructions Recorded Citalopram [CeleXA] 20 mg PO DAILY #30 tablet 11/18/16 Zolpidem [Ambien] 10 mg PO HS #30 tablet 09/08/17 Oxycodone HCl [Oxaydo] 5 mg PO Q6H PRN 30 Days #120 10/13/17 tablet.orl Allergies Allergy/AdvReac Type Severity Reaction Status Date / Time No Known Allergies Allergy Verified 01/20/18 02:53 All systems ED: reviewed and negative except as stated. Constitutional: Denies: fever ENT ED: Denies: throat pain Cardiovascular: Denies: chest pain Respiratory: Denies: cough Gastrointestinal: Reports: nausea, vomiting Musculoskeletal: Denies: back pain Integumentary: Denies: rash Neurological: Denies: weakness Past Medical History - Past Medical History Medical history: Reports: cancer, thyroid disease, other Psychiatric history: Reports: no psych history - Social History Smoking Status: Former smoker Smokeless Tobacco Status: No Alcohol use: Reports: occasionally Drug use: Reports: none Physical Exam - General Limitations: no limitations General appearance: alert - Head Head exam: atraumatic - Eye Eye exam: Present: normal appearance, PERRL - Respiratory Respiratory exam: Present: normal lung sounds bilaterally, other (Tachypnea). Absent: respiratory distress - Cardiovascular Cardiovascular exam: Present: regular rate, normal rhythm - Abdominal Exam Abdominal exam: Present: soft, Non-Tender. Absent: distention - Extremities Exam Extremities exam: Present: normal inspection - Neurological Exam Neurological exam: Present: alert, oriented X3 - Skin Skin exam: Present: warm, dry Course Course Narrative: CT scan of the head does not show any obstructive lesion. CT scan of the abdomen and pelvis do not show any acute abnormality. It is showing a potential cystitis but his urine does not demonstrate infection. He does have some hypokalemia but otherwise his lab work is stable. He is unable to tolerate by mouth potassium replacement so I have started IV potassium replacement. He initially continued to vomit after 8 mg of Zofran but he is starting to get some relief with 25 mg of Phenergan. Will admit for intractable nausea and vomiting and hypokalemia. TSH is elevated, however not bradycardic or hypotensive. No myxadema coma. Vital Signs Temperature 97.9 F 01/20/18 02:54 Pulse Rate 84 01/20/18 02:54 Respiratory Rate 30 01/20/18 02:54 Blood Pressure 157/88 01/20/18 02:54 O2 Sat by Pulse Oximetry 100 01/20/18 02:54 Temperature 97.9 F 01/20/18 02:54 Pulse Rate 82 01/20/18 05:09 Respiratory Rate 16 01/20/18 05:09 Blood Pressure 178/87 01/20/18 05:09 O2 Sat by Pulse Oximetry 97 01/20/18 05:09 Oxygen Delivery Oxygen Delivery Room Air Medical Decision Making - Medical Records Medical records reviewed: Yes I reviewed the patient's medical records. - Lab Data Lab results reviewed: Yes I reviewed the patient's lab results. Result diagrams: 01/20/18 04:22 01/20/18 04:22 Lab Results 01/20/18 01/20/18 01/20/18 Range/Units 04:22 04:22 04:22 WBC 7.6 (4.3-11.1) K/mcL RBC 4.86 (4.19-5.50) M/mcL Hgb 13.3 (12.9-16.9) g/dL Hct 38.4 (37.5-50.1) % MCV 79.0 L (83.0-100.0) fL MCH 27.4 L (28.0-33.3) pg MCHC 34.6 (31.6-35.5) g/dL RDW 13.6 (11.5-14.5) % Plt Count 255 (140-400) K/mcL MPV 8.7 L (9.4-12.4) fL Immature Gran % 0.4 (0-4) % Seg Neutrophils % 88.9 % Lymphocytes % 5.0 % Monocytes % 5.3 % Eosinophils % 0.1 % Basophils % 0.3 % Neutrophils # 6.7 (1.6-8.9) K/mcL Lymphocytes # 0.4 L (0.6-4.6) K/mcL Monocytes # 0.4 (0.0-1.3) K/mcL Eosinophils # 0.0 (0.0-0.6) K/mcL Basophils # 0.0 (0.0-0.2) K/mcL Sodium 134 L (136-145) mEq/L Potassium 2.9 L (3.5-5.1) mEq/L Chloride 99 (98-107) mEq/L Carbon Dioxide 18 L (23-29) mEq/L BUN 6 (6-20) mg/dL Creatinine 0.72 (0.70-1.30) mg/dL Est GFR ( Amer) > 60 (> 60) Est GFR (Non-Af Amer) > 60 (> 60) BUN/Creatinine Ratio 8 (6-26) Glucose 133 H (70-105) mg/dL Calculated Osmolality 278 L (280-300) Lactic Acid 2.2 (0.5-2.2) mmol/L Calcium 9.2 (8.6-10.3) mg/dL Total Bilirubin 0.5 (0.3-1.0) mg/dL Direct Bilirubin 0.1 (0.0-0.2) mg/dL Indirect Bilirubin 0.4 (0.0-1.2) mg/dL AST 12 L (13-39) Units/L ALT 9 (7-52) Units/L Alkaline Phosphatase 56 (34-104) Units/L Troponin I 0.03 (< 0.04) ng/mL Serum Total Protein 7.2 (6.4-8.9) g/dL Albumin 4.3 (3.5-5.7) g/dL Globulin 2.9 (2.4-3.5) g/dL Albumin/Globulin Ratio 1.5 (1.1-2.2) Lipase 30 (11-82) Units/L TSH (0.340-5.600) mcIU/mL Urine Color (Yellow) Urine Clarity (Clear) Urine pH (5.0-8.0) pH Units Ur Specific [place] (1.010-1.025) Urine Protein (Neg-Trace) mg/dL Urine Glucose (UA) (Normal) mg/dL Urine Ketones (Negative) mg/dL Urine Blood (Negative) Urine Nitrite (Negative) Urine Bilirubin (Negative) Urine Urobilinogen (Normal) mg/dL Ur Leukocyte Esterase (Negative) Urine Microscopic RBC (0-3) per hpf Urine Microscopic WBC (0-3) per hpf Ur Squamous Epith Cells (None-Few) per lpf Urine Bacteria (None-Few) per hpf Hyaline Casts (None-Few) per lpf Ur Culture Indicated? (NO) 01/20/18 01/20/18 Range/Units 04:22 04:30 WBC (4.3-11.1) K/mcL RBC (4.19-5.50) M/mcL Hgb (12.9-16.9) g/dL Hct (37.5-50.1) % MCV (83.0-100.0) fL MCH (28.0-33.3) pg MCHC (31.6-35.5) g/dL RDW (11.5-14.5) % Plt Count (140-400) K/mcL MPV (9.4-12.4) fL Immature Gran % (0-4) % Seg Neutrophils % % Lymphocytes % % Monocytes % % Eosinophils % % Basophils % % Neutrophils # (1.6-8.9) K/mcL Lymphocytes # (0.6-4.6) K/mcL Monocytes # (0.0-1.3) K/mcL Eosinophils # (0.0-0.6) K/mcL Basophils # (0.0-0.2) K/mcL Sodium (136-145) mEq/L Potassium (3.5-5.1) mEq/L Chloride (98-107) mEq/L Carbon Dioxide (23-29) mEq/L BUN (6-20) mg/dL Creatinine (0.70-1.30) mg/dL Est GFR ( Amer) (> 60) Est GFR (Non-Af Amer) (> 60) BUN/Creatinine Ratio (6-26) Glucose (70-105) mg/dL Calculated Osmolality (280-300) Lactic Acid (0.5-2.2) mmol/L Calcium (8.6-10.3) mg/dL Total Bilirubin (0.3-1.0) mg/dL Direct Bilirubin (0.0-0.2) mg/dL Indirect Bilirubin (0.0-1.2) mg/dL AST (13-39) Units/L ALT (7-52) Units/L Alkaline Phosphatase (34-104) Units/L Troponin I (< 0.04) ng/mL Serum Total Protein (6.4-8.9) g/dL Albumin (3.5-5.7) g/dL Globulin (2.4-3.5) g/dL Albumin/Globulin Ratio (1.1-2.2) Lipase (11-82) Units/L TSH 42.371 H (0.340-5.600) mcIU/mL Urine Color Yellow (Yellow) Urine Clarity Clear (Clear) Urine pH 8.0 (5.0-8.0) pH Units Ur Specific [place] 1.025 (1.010-1.025) Urine Protein 30 H (Neg-Trace) mg/dL Urine Glucose (UA) Normal (Normal) mg/dL Urine Ketones >=160 H (Negative) mg/dL Urine Blood Negative (Negative) Urine Nitrite Negative (Negative) Urine Bilirubin Negative (Negative) Urine Urobilinogen Normal (Normal) mg/dL Ur Leukocyte Esterase Negative (Negative) Urine Microscopic RBC 0-3 (0-3) per hpf Urine Microscopic WBC 0-3 (0-3) per hpf Ur Squamous Epith Cells Moderate H (None-Few) per lpf Urine Bacteria None Seen (None-Few) per hpf Hyaline Casts None Seen (None-Few) per lpf Ur Culture Indicated? NO (NO) - Radiology Data Radiology results reviewed: Yes I reviewed the patient's radiology results. - EKG Data EKG #1 EKG attestation: Yes I reviewed and interpreted this EKG. EKG shows normal: sinus rhythm Rate: normal Rhythm: NSR Interpretation: no acute changes Attestation Statement - Attestation Attestation: I examined this patient and my medical decision-making was reviewed with the Resident Physician. I agree with the documented findings, disposition and treatment plan as described except to the extent set forth below. Vomiting, history of chemotherapy. Will admit for hypokalemia, IV fluids, hypothyroidism. Patient has ongoing vomiting and will need admission to assure k correction and toleration of PO intake.
[2018-01-20] MEDS ORDERED: *HR* Promethazine 25 MG/ML VIAL IVP ONE (04:09)
[2018-01-20 04:39] LABS: Basophils % 0.3 %; Eosinophils % 0.1 %; Hematocrit 38.4 % (37.5-50.1); Hemoglobin 13.3 g/dL (12.9-16.9); Immature Granulocytes % 0.4 % (0-4); Lymphocytes # 0.4 K/mcL (0.6-4.6); Mean Corpuscular HGB Conc 34.6 g/dL (31.6-35.5); Mean Corpuscular Hemoglobin 27.4 pg (28.0-33.3); Mean Platelet Volume 8.7 fL (9.4-12.4); Monocytes # 0.4 K/mcL (0.0-1.3); Monocytes % 5.3 %; Neutrophils # 6.7 K/mcL (1.6-8.9); Platelet Count 255 K/mcL (140-400); Red Blood Count 4.86 M/mcL (4.19-5.50); Red Cell Distribution Width 13.6 % (11.5-14.5); Segmented Neutrophils % 88.9 %
[2018-01-20 04:40] LABS: Bilirubin,Urine Negative (Negative); Blood,Urine Negative (Negative); Clarity,Urine Clear (Clear); Color,Urine Yellow (Yellow); Glucose,Urine (UA) Normal (Normal); Ketones,Urine >=160 mg/dL (Negative); Leukocyte Esterase,Urine Negative (Negative); Nitrite,Urine Negative (Negative); Protein,Urine 30 mg/dL (Neg-Trace); Specific Gravity,Urine 1.025 (1.010-1.025); Urobilinogen,Urine Normal (Normal)
[2018-01-20 04:42] LABS: Bacteria,Urine None Seen per hpf (None-Few); Hyaline Casts,Urine None Seen per lpf (None-Few); RBC,Urine 0-3 per hpf (0-3); Squamous Epithelial Cell,Urine Moderate per lpf (None-Few); WBC,Urine 0-3 per hpf (0-3)
[2018-01-20 05:00] LABS: Troponin I 0.03 ng/mL (< 0.04)
[2018-01-20 05:02] LABS: Alanine Aminotransferase 9 Units/L (7-52); Albumin 4.3 g/dL (3.5-5.7); Albumin/Globulin Ratio 1.5 (1.1-2.2); Alkaline Phosphatase 56 Units/L (34-104); Aspartate Amino Transferase 12 Units/L (13-39); BUN/Creatinine Ratio 8 (6-26); Bilirubin,Direct 0.1 mg/dL (0.0-0.2); Bilirubin,Indirect 0.4 mg/dL (0.0-1.2); Bilirubin,Total 0.5 mg/dL (0.3-1.0); Blood Urea Nitrogen 6 mg/dL (6-20); Calcium 9.2 mg/dL (8.6-10.3); Carbon Dioxide 18 mEq/L (23-29); Chloride 99 mEq/L (98-107); Globulin 2.9 g/dL (2.4-3.5); Glucose 133 mg/dL (70-105); Lipase 30 Units/L (11-82); Osmolality,Calculated 278 (280-300); Potassium 2.9 mEq/L (3.5-5.1); Sodium 134 mEq/L (136-145); Total Protein 7.2 g/dL (6.4-8.9); eGFR For African Americans > 60 (> 60); eGFR For Non-African Americans > 60 (> 60)
[2018-01-20] MEDS ORDERED: Ondansetron 4 MG/2 ML VIAL IVP PRN (05:51)
[2018-01-20] MEDS ORDERED: Ondansetron 4 MG/2 ML VIAL ONE (05:52)
--- NOTE | 2018-01-20 05:53 | Internal Med History&Physical ---
<KalyaniVernon - Last Filed: 01/20/18 05:51> Date of Encounter: 01/20/18 Time of Encounter: 05:50 Internal Medicine - H&P: HPI Chief complaint: nausea and vomiting Admitted From: Emergency Dept Plans for Post Hospital Care: Home History of present illness: Mr. Null is a 57 year old male past medical history oropharynx cancer, head and neck cancer with metastasis to lung on chemotherapy, severe anemia, hypothyroid, presents to ED with worsening nausea and vomiting for last 4 days. Patient reports that he has been undergoing chemotherapy for many years, with recurrent episodes of nausea and vomiting, but it has been more severe the last 3 days. He reports chills but no fevers, chest pain, shortness of breath, cough , hematuria, dysuria. He does admit to abdominal tenderness diffusely, diarrhea. He has been unable to tolerate by mouth intake for the last 2 days. Able to tolerate small amounts of liquid. Reports that his most recent chemotherapy treatment was multiple weeks ago. Zofran at home has been ineffective, Phenergan at ED is minimally effective. Past Med Surg Social Fam HX - Past Medical History Medical history: cancer, thyroid disease, other Psychiatric history: no psych history - Social History Smoking Status: Former smoker Smokeless Tobacco Status: No Alcohol use: occasionally Drug use: none Internal Medicine - H&P: Meds Citalopram [CeleXA] 20 mg PO DAILY #30 tablet 11/18/16 [Rx] Omeprazole [PriLOSEC] 20 mg PO DAILY PRN 12/04/16 [History] Albuterol Sulfate [Ventolin Hfa] 2 puff IH Q4-6H PRN 07/14/17 [History] Budesonide/Formoterol 160/4.5 [Symbicort 160/4.5] 2 puff IH BIDR 07/14/17 [ History] Gabapentin [Neurontin] 600 mg PO TID 11/05/17 [History] Levothyroxine [Synthroid] 100 mcg PO 0630 11/05/17 [History] 3 Allergy/AdvReac Type Severity Reaction Status Date / Time No Known Allergies Allergy Verified 01/20/18 02:53 All Systems PM: A 10-system review of systems was performed and is negative for pertinent findings except as documented above in the HPI. - Constitutional Vitals: Temp Pulse Resp BP Pulse Ox 97.9 F 82 16 178/87 97 01/20/18 02:54 01/20/18 05:09 01/20/18 05:09 01/20/18 05:09 01/20/18 05:09 Internal Med - H&P Results - Labs CBC & Chem 7: 01/20/18 04:22 01/20/18 04:22 Labs: Short CBC 01/20/18 Range/Units 04:22 WBC 7.6 (4.3-11.1) K/mcL Hgb 13.3 (12.9-16.9) g/dL Hct 38.4 (37.5-50.1) % Plt Count 255 (140-400) K/mcL Neutrophils # 6.7 (1.6-8.9) K/mcL BMP 01/20/18 04:22 Sodium 134 L Potassium 2.9 L Chloride 99 Carbon Dioxide 18 L BUN 6 Creatinine 0.72 Glucose 133 H Calcium 9.2 Cardiac Enzymes 01/20/18 Range/Units 04:22 Troponin I 0.03 (< 0.04) ng/mL Liver Function 01/20/18 Range/Units 04:22 Total Bilirubin 0.5 (0.3-1.0) mg/dL Direct Bilirubin 0.1 (0.0-0.2) mg/dL AST 12 L (13-39) Units/L ALT 9 (7-52) Units/L Alkaline Phosphatase 56 (34-104) Units/L Albumin 4.3 (3.5-5.7) g/dL Urine 01/20/18 Range/Units 04:30 Urine Color Yellow (Yellow) Urine Clarity Clear (Clear) Urine pH 8.0 (5.0-8.0) pH Units Ur Specific [place] 1.025 (1.010-1.025) Urine Protein 30 H (Neg-Trace) mg/dL Urine Glucose (UA) Normal (Normal) mg/dL - Impressions ITS Impressions Chest X-Ray 01/20/18 03:37 IMPRESSION: No acute disease. D/ / Behzad Bustos MD / Behzad Bustos MD Interpreting Provider: Behzad Bustos MD Head CT 01/20/18 03:39 IMPRESSION: 1. No acute hemorrhage or definite evidence for acute ischemia. 2. Suspected tiny colloid cyst. 3. Acute or chronic left maxillary sinus disease. D/ / Behzad Bustos MD / Behzad Bustos MD Interpreting Provider: Behzad Bustos MD Abdomen/Pelvis CT 01/20/18 03:41 IMPRESSION: 1. Diffuse urinary bladder wall thickening suggests cystitis. 2. Re- demonstration of pulmonary metastatic disease, with some nodules improving and others progressing. D/ / Behzad Bustos MD / Behzad Bustos MD Interpreting Provider: Behzad Bustos MD - Assessment and plan (1) Intractable nausea and vomiting Current Visit: Yes Status: Acute Assessment and plan: CT abdomen/ pelvis with diffuse urinary bladder wall thickening suggesting cystitis, but UA negative and patient denies dysuria. Keep patient on nothing by mouth. Start D5 0.45% NaCl. Continue IV Zofran as needed. Replete electrolytes as necessary. Continue to monitor with vital signs and a.m. labs. Symptomatic treatment for now. Hold PO medications, reconcile home PO medications when tolerable. Qualifiers: Vomiting type: unspecified Qualified Code(s): R11.2 - Nausea with vomiting , unspecified (2) Hypothyroidism Current Visit: No Status: Chronic Assessment and plan: TSH markedly elevated. Likely secondary to radiotherapy. Increased dose of Synthroid. Patient unable to tolerate PO. Start with Synthroid 100 mcg IV daily for now, switch to PO when patient can tolerate. Qualifiers: Hypothyroidism type: unspecified Qualified Code(s): E03.9 - Hypothyroidism , unspecified (3) Hypokalemia Current Visit: Yes Status: Acute Assessment and plan: Currently giving 40 MEQ, give another 40 MEQ after first dose completed. Recheck with AM labs. (4) Primary squamous cell carcinoma of oropharynx Current Visit: No Status: Acute Assessment and plan: Follow-up outpatient (5) History of malignant neoplasm metastatic to lung Current Visit: Yes Status: Acute Assessment and plan: Follow up outpatient. (6) History of head and neck cancer Current Visit: No Status: Acute Assessment and plan: Follow up outpatient. (7) DVT prophylaxis Current Visit: Yes Status: Acute Assessment and plan: Lovenox - Time Spent With Patient Total time spent is greater than 50% in coordination of care (as documented) at patient's floor/unit and/or counseling patient: Greater than 35 minutes <Sky Maria - Last Filed: 01/20/18 07:11> Date of Encounter: 01/20/18 Internal Medicine - H&P: HPI History of present illness: Mr. Null is a 57 year old male All Systems PM: A 10-system review of systems was performed and is negative for pertinent findings except as documented above in the HPI. - Constitutional Vitals: Temp Pulse Resp BP Pulse Ox 97.9 F 82 16 156/93 97 01/20/18 02:54 01/20/18 05:09 01/20/18 06:17 01/20/18 06:17 01/20/18 05:09 Internal Med - H&P Results - Labs CBC & Chem 7: 01/20/18 04:22 01/20/18 04:22 - Attending Attestation I have seen and examined this patient independently. I have discussed with Resident physician Dr Auguste regarding the management plan. Agree with the documentation. - Assessment and plan (1) Primary squamous cell carcinoma of oropharynx Current Visit: No Status: Acute (2) Hypothyroidism Current Visit: No Status: Chronic Qualifiers: Hypothyroidism type: unspecified Qualified Code(s): E03.9 - Hypothyroidism , unspecified (3) History of malignant neoplasm metastatic to lung Current Visit: Yes Status: Acute (4) History of head and neck cancer Current Visit: No Status: Acute (5) Hypokalemia Current Visit: Yes Status: Acute (6) Intractable nausea and vomiting Current Visit: Yes Status: Acute Qualifiers: Vomiting type: unspecified Qualified Code(s): R11.2 - Nausea with vomiting , unspecified (7) DVT prophylaxis Current Visit: Yes Status: Acute - Time Spent With Patient Total time spent is greater than 50% in coordination of care (as documented) at patient's floor/unit and/or counseling patient:
[2018-01-20] MEDS ORDERED: Acetaminophen 325 MG TABLET PO PRN (06:23)
[2018-01-20] MEDS ORDERED: Naloxone 0.4 MG/ML INJ IVP PRN (06:23)
[2018-01-20] MEDS ORDERED: *HR* Promethazine 25 MG/ML VIAL IVP PRN ×3 (07:10→14:43)
[2018-01-20] MEDS: Levothyroxine Sodium 100 MCG VIAL IVP SCH (08:18)
[2018-01-20] MEDS: D5% in 0.45% NACL 1,000 ML IVC SCH ×2 (08:19→17:42)
[2018-01-20] MEDS ORDERED: Potassium Chloride 40 MEQ, Lidocaine 1% 2 ML in D5% in Water 500 ML IVPB ONE ×2 (09:00→14:42)
[2018-01-20] MEDS ORDERED: Levothyroxine Sodium 100 MCG VIAL IVP SCH (09:00)
[2018-01-20] MEDS: Budesonide/Formoterol 160/4.5 MDI IH SCH ×2 (09:42→19:55)
[2018-01-20] MEDS ORDERED: Metoclopramide 10 MG/2 ML VIAL IVP ONE (12:51)
[2018-01-20] MEDS ORDERED: Metoclopramide 10 MG/2 ML VIAL IVP PRN ×2 (12:51→14:27)
--- NOTE | 2018-01-20 14:45 | Internal Med Progress Note ---
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 Last treatment 2-3 weeks ago Reports that his [id number] recently passed and he has not been very compliant with his antirheumatic regimen This is likely led to current bout of intractable nausea and vomiting Continue to closely monitor patient Closely monitor and replete electrolytes as needed Continue nothing by mouth, sips of room temperature water Continue D5 0.45 NaCl Continue anti-emetics, Zofran, increase Phenergan to 25 mg every 6 when necessary Continue to closely monitor hemodynamic status Hold oral medications and change vital medications to IV CT abdomen/ pelvis with diffuse urinary bladder wall thickening suggesting cystitis, but UA negative and patient denies dysuria. 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 Additionally, patient has been unable to tolerate oral intake due to intractable nausea and vomiting 4 days. He has not been able to be compliant with Synthroid regimen due to this. Start with Synthroid 100 mcg IV daily for now, switch to PO when patient can tolerate. Qualifiers: Hypothyroidism type: unspecified Qualified Code(s): E03.9 - Hypothyroidism , unspecified (4) History of malignant neoplasm metastatic to lung Current Visit: Yes Status: Acute Assessment and plan: Follow up outpatient with [facility]. (5) History of head and neck cancer Current Visit: No Status: Acute Assessment and plan: Follow up outpatient with [facility]. (6) Hypokalemia Current Visit: Yes Status: Acute Assessment and plan: Currently giving 40 MEQ potassium and lidocaine over 4 hours, Recheck with AM labs. (7) DVT prophylaxis Current Visit: Yes Status: Acute Assessment and plan: Continue Lovenox subcutaneous injections - Time Spent With Patient Total time spent is greater than 50% in coordination of care (as documented) at patient's floor/unit and/or counseling patient: 25 - 35 minutes - Subjective Interval history: Mr. Null is a 57 year old male past medical history oropharynx cancer, head and neck cancer with metastasis to lung on chemotherapy, severe anemia, hypothyroid, presents to ED with worsening nausea and vomiting for last 4 days. Patient seen and examined at bedside today. Continues to endorse nausea and vomiting. Denies any hematemesis. Continues to deny chest pain, shortness of breath or abdominal pain. - Constitutional Vitals: Temp Pulse Resp BP Pulse Ox 98.3 F 71 17 171/93 99 01/20/18 11:46 01/20/18 11:46 01/20/18 11:46 01/20/18 11:46 01/20/18 11:46 General appearance: Present: mild distress (Secondary to nausea and vomiting) - Head Head exam: Present: atraumatic, normocephalic - Eye Eye exam: Present: PERRL, conjuntiva pink, sclera anicteric Pupils: Present: PERRL - Neck Neck exam general surgery: Present: supple, trachea midline. Absent: lymphadenopathy - Respiratory Respiratory exam: Present: CTAB. Absent: accessory muscle use, rales, rhonchi, wheezes - Cardiovascular Cardiovascular exam: Present: RRR, +S1, +S2. Absent: diastolic murmur, gallop, rubs, systolic murmur - GI/Abdominal GI/Abdominal exam: Present: normal bowel sounds, soft, no peritoneal signs. Absent: distended, tenderness - Extremities Exam Extremities exam: Present: warm, radial pulses palpable and symmetrical. Absent : calf tenderness, cyanotic, pedal edema - Neurological Exam Neurological exam: Present: CN II-XII intact, oriented X3, no focal deficits. Absent: pronater drift, facial droop, speech deficit - Skin Skin exam: Present: dry, intact Internal Medicine: Result - Labs CBC & Chem 7: 01/20/18 04:22 01/20/18 12:44 Labs: BMP 01/20/18 12:44 Potassium 3.3 L Consult Discharge Plan - Plan Referrals: Jose Alejandro West MD [Primary Care Provider] -
[2018-01-20] MEDS: Ondansetron 4 MG/2 ML VIAL IVP PRN ×2 (17:42→20:50)
[2018-01-20] MEDS ORDERED: SUMAtriptan succinate 25 MG TABLET PO ONE (20:42)
[2018-01-21] MEDS: D5% in 0.45% NACL 1,000 ML IVC SCH ×3 (02:30→18:40)
[2018-01-21] MEDS: Ondansetron 4 MG/2 ML VIAL IVP PRN ×4 (02:35→18:40)
[2018-01-21] MEDS: Levothyroxine Sodium 100 MCG VIAL IVP SCH (06:51)
[2018-01-21] MEDS: *HR* Enoxaparin 40 MG/0.4 ML SYRINGE SQ SCH (06:53)
[2018-01-21 07:18] LABS: Basophils % 0.2 %; Eosinophils % 0.2 %; Hematocrit 39.6 % (37.5-50.1); Hemoglobin 13.6 g/dL (12.9-16.9); Immature Granulocytes % 0.5 % (0-4); Lymphocytes # 0.6 K/mcL (0.6-4.6); Lymphocytes % 6.9 %; Mean Corpuscular HGB Conc 34.3 g/dL (31.6-35.5); Mean Corpuscular Hemoglobin 27.9 pg (28.0-33.3); Mean Corpuscular Volume 81.1 fL (83.0-100.0); Mean Platelet Volume 8.5 fL (9.4-12.4); Monocytes # 0.9 K/mcL (0.0-1.3); Monocytes % 10.1 %; Neutrophils # 6.9 K/mcL (1.6-8.9); Platelet Count 292 K/mcL (140-400); Red Blood Count 4.88 M/mcL (4.19-5.50); Red Cell Distribution Width 14.2 % (11.5-14.5); Segmented Neutrophils % 82.1 %
[2018-01-21] MEDS: Budesonide/Formoterol 160/4.5 MDI IH SCH ×2 (07:26→19:33)
[2018-01-21 07:40] LABS: BUN/Creatinine Ratio 4 (6-26); Blood Urea Nitrogen 3 mg/dL (6-20); Calcium 9.3 mg/dL (8.6-10.3); Carbon Dioxide 24 mEq/L (23-29); Chloride 101 mEq/L (98-107); Glucose 124 mg/dL (70-105); Osmolality,Calculated 282 (280-300); Potassium 3.2 mEq/L (3.5-5.1); Sodium 137 mEq/L (136-145); eGFR For African Americans > 60 (> 60); eGFR For Non-African Americans > 60 (> 60)
[2018-01-21] MEDS ORDERED: Potassium Chloride 40 MEQ, Lidocaine 1% 2 ML in D5% in Water 500 ML IVPB ONE (08:24)
--- NOTE | 2018-01-21 10:40 | Electrocardiograph Report ---
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
--- NOTE | 2018-01-21 13:06 | Internal Med Progress Note ---
Date of Encounter: 01/21/18 Time of Encounter: 13:06 - Assessment and plan (1) Intractable nausea and vomiting Current Visit: Yes Status: Acute Assessment and plan: Patient presented with intractable nausea and vomiting x 4 days, also having intermittent diarrhea. 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 Last treatment 2-3 weeks ago Patient reports due to in family and multiple new stressors he has not been compliant with his anti-emetic regimen Antiemetics restarted, patient remains mildly nauseous but has not vomited since yesterday evening. Reports nausea is improving. Continue to closely monitor patient, closely monitor electrolytes Tolerated clears diet this afternoon, advanced to full liquid diet for evening meal. 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 Also, patient has not been able to tolerate oral Synthroid dose due to 4 days of nausea vomiting and diarrhea. Continue Synthroid 100 mcg IV daily for now, switch to PO Synthroid in the morning Qualifiers: Hypothyroidism type: unspecified Qualified Code(s): E03.9 - Hypothyroidism , unspecified (4) History of malignant neoplasm metastatic to lung Current Visit: Yes Status: Acute Assessment and plan: Follow up outpatient with [facility]. (5) History of head and neck cancer Current Visit: No Status: Acute Assessment and plan: Follow up outpatient with [facility]. (6) Hypokalemia Current Visit: Yes Status: Acute Assessment and plan: Continues to have hypokalemia today, given additional IV K rider, recheck potassium in the morning, continue telemetry. (7) DVT prophylaxis Current Visit: Yes Status: Acute Assessment and plan: Patient on subcutaneous Lovenox, continue, increase activity as tolerated. Risk for DVTs due to malignancy (8) Hypertension Current Visit: Yes Status: Acute Assessment and plan: Patient does not have a history of hypertension Has had intermittent hypertensive episodes throughout this stay. He reports he does not take anti-HTN medications at home. Started low-dose lisinopril, BP improved, continue to closely monitor Consider discharging patient on low-dose lisinopril Qualifiers: Hypertension type: unspecified Qualified Code(s): I10 - Essential (primary ) hypertension - Time Spent With Patient Total time spent is greater than 50% in coordination of care (as documented) at patient's floor/unit and/or counseling patient: 25 - 35 minutes - Subjective Interval history: Mr. Null is a 57 year old male past medical history oropharynx cancer, head and neck cancer with metastasis to lung on chemotherapy, severe anemia, hypothyroid, presents to ED with worsening nausea and vomiting for last 4 days. Patient seen and examined at bedside today. Continues to endorse nausea and vomiting. Denies any hematemesis. Continues to deny chest pain, shortness of breath or abdominal pain. - Constitutional Vitals: Temp Pulse Resp BP Pulse Ox 99.4 F 72 17 148/53 98 01/21/18 11:58 01/21/18 11:58 01/21/18 11:58 01/21/18 11:58 01/21/18 11:58 General appearance: Present: mild distress (Secondary to nausea and vomiting) - Head Head exam: Present: atraumatic, normocephalic - Eye Eye exam: Present: PERRL, conjuntiva pink, sclera anicteric Pupils: Present: PERRL - Neck Neck exam general surgery: Present: supple, trachea midline. Absent: lymphadenopathy - Respiratory Respiratory exam: Present: CTAB. Absent: accessory muscle use, rales, rhonchi, wheezes - Cardiovascular Cardiovascular exam: Present: RRR, +S1, +S2. Absent: diastolic murmur, gallop, rubs, systolic murmur - GI/Abdominal GI/Abdominal exam: Present: normal bowel sounds, soft, no peritoneal signs. Absent: distended, tenderness - Extremities Exam Extremities exam: Present: warm, radial pulses palpable and symmetrical. Absent : calf tenderness, cyanotic, pedal edema - Neurological Exam Neurological exam: Present: CN II-XII intact, oriented X3, no focal deficits. Absent: pronater drift, facial droop, speech deficit - Skin Skin exam: Present: dry, intact Internal Medicine: Result - Labs CBC & Chem 7: 01/21/18 06:43 01/21/18 06:43 Labs: Short CBC 01/21/18 Range/Units 06:43 WBC 8.4 (4.3-11.1) K/mcL Hgb 13.6 (12.9-16.9) g/dL Hct 39.6 (37.5-50.1) % Plt Count 292 (140-400) K/mcL Neutrophils # 6.9 (1.6-8.9) K/mcL BMP 01/20/18 01/21/18 12:44 06:43 Sodium 137 Potassium 3.3 L 3.2 L Chloride 101 Carbon Dioxide 24 BUN 3 L Creatinine 0.77 Glucose 124 H Calcium 9.3 Consult Discharge Plan - Plan Referrals: Jose Alejandro West MD [Primary Care Provider] -
[2018-01-21] MEDS: Gabapentin 300 MG CAPSULE PO SCH (20:34)
[2018-01-21] MEDS ORDERED: Melatonin 3 MG TABLET PO PRN (21:16)
[2018-01-22] MEDS: *HR* Enoxaparin 40 MG/0.4 ML SYRINGE SQ SCH (05:39)
[2018-01-22 06:46] LABS: BUN/Creatinine Ratio 5 (6-26); Blood Urea Nitrogen 3 mg/dL (6-20); Calcium 8.9 mg/dL (8.6-10.3); Carbon Dioxide 22 mEq/L (23-29); Chloride 104 mEq/L (98-107); Glucose 114 mg/dL (70-105); Osmolality,Calculated 279 (280-300); Potassium 3.4 mEq/L (3.5-5.1); Sodium 136 mEq/L (136-145); eGFR For African Americans > 60 (> 60); eGFR For Non-African Americans > 60 (> 60)
[2018-01-22] MEDS: D5% in 0.45% NACL 1,000 ML IVC SCH (07:21)
[2018-01-22] MEDS: Gabapentin 300 MG CAPSULE PO SCH (07:22)
[2018-01-22] MEDS: Budesonide/Formoterol 160/4.5 MDI IH SCH (07:53)
[2018-01-22 12:19] VITALS: BP 164/97
--- NOTE | 2018-01-22 12:32 | Discharge Summary ---
Orders not resulted at time of discharge: Pending orders 01/23/18 04:00 Basic Metabolic Panel AM 0400 01/24/18 04:00 Basic Metabolic Panel AM 0400 Date of Encounter: 01/22/18 Time of Encounter: 12:29 - Discharge Diagnosis (1) Intractable nausea and vomiting Priority: Primary Status: Resolved Assessment and Plan: Patient presented with intractable nausea and vomiting x 4 days, also having intermittent diarrhea. 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 Last treatment 2-3 weeks ago Patient reports due to in family and multiple new stressors he has not been compliant with his anti-emetic regimen Antiemetics restarted, nausea and vomiting has now resolved. Patient tolerating regular diet. Resume antibiotics at discharge Patient has been informed to follow-up with primary care provider within one week of discharge. Denies any further questions or needs at this time. He is medically stable and ready for discharge. He is instructed to return to the ED should symptoms return and/or worsen. 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 Also, patient has not been able to tolerate oral Synthroid dose due to 4 days of nausea vomiting and diarrhea. Continue Synthroid 100 mcg IV daily for now, switch to PO Synthroid in the morning Qualifiers: Hypothyroidism type: unspecified Qualified Code(s): E03.9 - Hypothyroidism , unspecified (4) History of malignant neoplasm metastatic to lung Priority: Secondary Status: Acute Assessment and Plan: Follow up outpatient with [facility]. (5) History of head and neck cancer Priority: Secondary Status: Acute Assessment and Plan: Follow up outpatient with [facility]. (6) Hypokalemia Priority: Secondary Status: Acute Assessment and Plan: Improving since nausea and vomiting has subsided PCP to follow (7) Hypertension Priority: Secondary Status: Acute Assessment and Plan: Patient does not have a history of hypertension Has had hypertensive episodes throughout this stay. He reports he does not take anti-HTN medications at home. He was started on low-dose lisinopril, BP improved, continue to closely monitor Blood pressure slightly improved with addition of lisinopril, patient would likely benefit from daily lisinopril dose at discharge excellent instructed to follow-up with primary care provider for further blood pressure medication titration and monitoring Qualifiers: Hypertension type: unspecified Qualified Code(s): I10 - Essential (primary ) hypertension (8) DVT prophylaxis Priority: Secondary Status: Acute Hospital course: Mr. Null is a 57 year old male See assessment and plan for hospital course Discharge discussed with: patient, family, nurse - Time Spent with Patient Total time spent providing and/or coordinating discharge services: Less than 30 minutes - Discharge Medications Prescriptions: Lisinopril [Zestril] 2.5 mg PO DAILY 30 Days #30 tablet Home Medications: Citalopram [CeleXA] 20 mg PO DAILY #30 tablet 11/18/16 [Rx] Omeprazole [PriLOSEC] 20 mg PO DAILY PRN 12/04/16 [History] Albuterol Sulfate [Ventolin Hfa] 2 puff IH Q4-6H PRN 07/14/17 [History] Budesonide/Formoterol 160/4.5 [Symbicort 160/4.5] 2 puff IH BIDR 07/14/17 [ History] Gabapentin [Neurontin] 300 mg PO TID 11/05/17 [History] Levothyroxine [Synthroid] 100 mcg PO 0630 11/05/17 [History] Lisinopril [Zestril] 2.5 mg PO DAILY 30 Days #30 tablet 01/22/18 [Rx] Allergies/Adverse Reactions: 3 Allergy/AdvReac Type Severity Reaction Status Date / Time No Known Allergies Allergy Verified 01/20/18 11:54 Date of admission: 01/20/18 05:50 Primary care physician: Jose Alejandro West MD Discharging clinician: Tyler Gonzalez Anticipated date of discharge: 01/22/18 - Constitutional Vitals: Temp Pulse Resp BP Pulse Ox 98.7 F 62 16 164/97 98 01/22/18 12:14 01/22/18 12:14 01/22/18 12:14 01/22/18 12:14 01/22/18 12:14 General appearance: Present: mild distress (Secondary to nausea and vomiting) - Head Head exam: Present: atraumatic, normocephalic - Eye Eye exam: Present: PERRL, conjuntiva pink, sclera anicteric Pupils: Present: PERRL - Neck Neck exam general surgery: Present: supple, trachea midline. Absent: lymphadenopathy - Respiratory Respiratory exam: Present: CTAB. Absent: accessory muscle use, rales, rhonchi, wheezes - Cardiovascular Cardiovascular exam: Present: RRR, +S1, +S2. Absent: diastolic murmur, gallop, rubs, systolic murmur - GI/Abdominal GI/Abdominal exam: Present: normal bowel sounds, soft, no peritoneal signs. Absent: distended, tenderness - Extremities Exam Extremities exam: Present: warm, radial pulses palpable and symmetrical. Absent : calf tenderness, cyanotic, pedal edema - Neurological Exam Neurological exam: Present: CN II-XII intact, oriented X3, no focal deficits. Absent: pronater drift, facial droop, speech deficit - Skin Skin exam: Present: dry, intact - Patient Status Disposition: Home, Self-Care Condition: Good Overall status at discharge: patient is back to baseline - Discharge Instructions Instructions: Hypokalemia (DC), Chemo-Induced Nausea and Vomiting (DC) Follow Up With: Jose Alejandro West MD [Primary Care Provider] - Additional Instructions: Follow-up appointments: If there is not an appointment listed below, please call your physician and schedule a follow-up appointment. If you have congestive heart failure and your symptoms return, make an appointment with your physician. Medication List: Carry an up to date list of medications you are taking at all time. We have given you an updated medication list including any new medications that you have been prescribed. Please provide that list to your primary provider Symptoms: If your condition changes or you experience any of the following symptoms, notify your physician immediately: Unusual or worsening pain, fever, persistent nausea and vomiting, bleeding, increase in swelling (especially in your legs), sudden weight gain, extreme dizziness, chest pain, increased drainage or redness from a wound or incision. Go to the emergency department if you experience a problem with breathing. Weights: If you have a history of swelling or shortness of breath, weigh yourself daily and notify your physician if you have a weight gain of two or more pounds in one day or 5 or more pounds in a week. If you experience any of the warning signs for stroke: Sudden numbness or weakness of the face, arm or leg; especially on one side of the body, sudden confusion, trouble speaking or understanding, sudden trouble seeing in one or both eyes, sudden trouble walking, dizziness, loss of balance or coordination, sudden sever headache with no cause; Call 911 or go to the emergency room. Stroke is a medical emergency. Some risk factors for stroke: Age, cigarette smoking, diabetes, excessive alcohol consumption, family history , high blood pressure, overweight, physical inactivity, prior stroke, heart attack, diagnosis of carotid artery stenosis or other artery disease. If you smoke, STOP: Smoking or tobacco use significantly increases your risk of heart and lung disease. Your chance of disease greatly increases if you continue to smoke. For more information, call the [place] tobacco quit line for smoking cessation QUIT-NOW ( ) - Diet and Activity Activity: increase activity as tolerated Diet: advance to your usual diet
== END 2018-01-22 14:15 | disposition home or self-care (01) ==
LOC: EMEROO 02:52 → 3BNU 02:52
PROVIDERS: ADMIT Internal Medicine; ATTEND Internal Medicine